=== PATIENT | female | born 1970 | race African-American/Black ===

== ENCOUNTER → 2017-12-18 | Day surgery (SDC) | payer OTHER ==
[2017-12-17 11:06] VITALS: BMI 48.6
[~2017-12-18] MED LIST: Lidocaine 1% PF 5 ML VIAL ONE; PROPOFOL 200 MG/20 ML VIAL ONE
--- NOTE | 2017-12-18 17:11 | OP ---
DATE OF PROCEDURE: 12/18/2017 TITLE OF PROCEDURE: EGD with biopsy. PREOPERATIVE DIAGNOSES: 1. History of recurrent H. pylori infection. 2. Persistent dyspepsia. 3. Currently taking her second round of antibiotic therapy for H. pylori. POSTOPERATIVE DIAGNOSES: 1. Exam to second portion of duodenum. 2. A 2 cm sliding hiatal hernia. 3. Few erosions at the lower esophagus, biopsied at 36 cm for histology. 4. Mild nonspecific patchy erythema of the gastric body and antrum, biopsied for CLOtest. 5. No ulcers identified. 6. Normal duodenum. PROCEDURE IN DETAIL: Written informed consent was obtained. The patient was brought to the endoscop y suite. Total intravenous anesthesia was provided by Paul Sotomayor CRNA. The patient was placed in the left lateral decubitus position. A bite block was inserted into the mouth. When adequate sed ation was achieved, a Pentax video diagnostic gastroscope was introduced into the oral cavity and the esophagus was carefully intubated. The gastroscope was advanced under direct visualization to the s econd portion of the duodenum. Endoscopic findings revealed a small sliding hiatal hernia about 1-2 cm in length. Several small chronic appearing erosions were noted in the lower esophagus just proxim al to the hiatal hernia. Biopsies were obtained at 36 cm for histology. The stomach was entered and carefully examined. This included a retroflexed view of the cardia and fundus. No ulcer or active gastritis was identified. Mild patchy erythema was noted in the body and antrum that appeared nonspe cific. Biopsies were obtained in the body for CLOtest and submitted to microbiology. The duodenum f rom the bulb to the second portion appeared normal. No ulcers were identified. The stomach was deco mpressed as the endoscope was removed from the patient. She was repositioned for the colonoscopy. RECOMMENDATIONS: 1. Await biopsy results. 2. Ask the patient to call me for biopsy results. 3. Continue medication as prescribed by our office for the H. pylori infection. 4. Follow up with GI in 4-6 weeks.
--- NOTE | 2017-12-18 19:22 | OP ---
DATE OF PROCEDURE: 12/18/2017 TITLE OF PROCEDURE: Colonoscopy. PREPROCEDURE DIAGNOSES: 1. Colon screening. 2. Incidental constipation. POSTPROCEDURE DIAGNOSES: 1. Exam to cecum; good bowel preparation. 2. Mild sigmoid diverticulosis. 3. Small internal hemorrhoids. 4. Otherwise normal colonoscopy. No polyp seen. PROCEDURE IN DETAIL: Written informed consent was obtained. Upon completion of the EGD, the patient was positioned for the colonoscopy. Total intravenous anesthesia was provided by ZULEYKA Clement. A digital rectal exam was performed that was unremarkable. A Pentax video colonoscope was inser candy through the anal canal and advanced under direct visualization to the cecum. Position in the cec um was verified by clear identification of the appendiceal orifice and the ileocecal valve. The qual ity of the bowel preparation was good. Each colon segment was examined carefully as the colonoscope was slowly withdrawn from the cecum. Vascular pattern and haustral folds appeared normal. In the si gmoid colon, a few small diverticular orifices were identified. There was no evidence of bleeding. A retroflexed exam in the rectum demonstrated small internal hemorrhoids. No polyps were seen. The colon was decompressed as the colonoscope was removed from the patient. She was transferred to the d ay stay surgery area for post-procedure monitoring. There were no immediate complications. RECOMMENDATIONS: 1. High-fiber, low-fat diet. 2. Continue Linzess 145 mcg daily as needed for constipation. 3. Follow up with [facility] Response Coordinator in 4-6 weeks. 4. Repeat colonoscopy in 10 years for purposes of colon cancer screening.
== END ==
LOC: SDC 10:46
PROVIDERS: ATTEND Internal Medicine Gastroenterology
PROC: 0DJD8ZZ Inspection of Lower Intestinal Tract, Via Natural or Artificial Opening Endoscopic (ICD-10-PCS; principal; 2017-12-18)
PROC: 0DB58ZX Excision of Esophagus, Via Natural or Artificial Opening Endoscopic, Diagnostic (ICD-10-PCS; principal; 2017-12-18)
DX: Z12.11 Encounter for screening for malignant neoplasm of colon (principal); K57.30 Diverticulosis of large intestine without perforation or abscess without bleeding; K64.8 Other hemorrhoids; K22.10 Ulcer of esophagus without bleeding; K44.9 Diaphragmatic hernia without obstruction or gangrene; M19.90 Unspecified osteoarthritis, unspecified site; F41.9 Anxiety disorder, unspecified; F32.9 Major depressive disorder, single episode, unspecified; E66.01 Morbid (severe) obesity due to excess calories; N39.0 Urinary tract infection, site not specified; Z88.0 Allergy status to penicillin; Z79.899 Other long term (current) drug therapy; Z98.890 Other specified postprocedural states; Z88.8 Allergy status to other drugs, medicaments and biological substances; Z68.42 Body mass index [BMI] 45.0-49.9, adult
CPT/HCPCS: 87081; 88305; 88312; 88313; J2001; J2704

== ENCOUNTER 2020-11-12 07:23 | Emergency (ER) | payer OTHER ==
[2020-11-12] MEDS ORDERED: Ondansetron PF 4 MG/2 ML Vial ONE (07:40)
[2020-11-12 08:01] LABS: #Eosinphils 0.1 thou/uL (0.0-0.7); #Lymphocytes 1.5 thou/uL (1.20-3.40); #Monocytes 0.4 thou/uL (0.11-0.59); #Neutrophils 4.2 thou/uL (1.40-6.50); %Basophils 0.3 % (0.0-1.0); %Eosinophils 1.9 % (0.0-10.0); %Lymphocytes 23.8 % (21.0-51.0); %Monocytes 5.8 % (0.0-10.0); %Neutrophils 68.2 % (42.0-75.0); Mean Corpuscular HGB CONC 34.3 g/dL (32.0-36.0); Mean Corpuscular Hemoglobin 31.3 pg (27.0-31.0); Mean Corpuscular Volume 91.1 fL (78.0-98.0); Mean Platelet Volume 7.9 fL (7.4-10.4); Platelet Count 205 thou/uL (130-400); Red Blood Cell (RBC) Count 4.17 mill/uL (4.20-5.40); White Blood Cell (WBC) Count 6.2 thou/uL (4.8-10.8)
[2020-11-12 08:24] LABS: ALT (SGPT) 8 U/L (8-55); AST (SGOT) 14 U/L (5-34); Acetaminophen Less than 6.0 mcg/mL (10.0-30.0); Albumin 4.1 g/dL (3.5-5.0); Alcohol Less than 10 mg/dL (Less than 10); Alkaline Phosphatase 80 U/L (40-110); Anion Gap 13 mmol/L (10-20); BUN (Urea Nitrogen) 11 mg/dL (9.8-20.1); Bilirubin, Total 0.5 mg/dL (0.2-1.2); Calc. Creatinine Clearance 0 mL/min (70-130); Calcium 9.3 mg/dL (7.8-10.44); Carbon Dioxide 25 mmol/L (22-29); Chloride 103 mmol/L (98-107); Globulin 3.5 g/dL (2.4-3.5); Glucose 98 mg/dL (70-105); Magnesium 1.9 mg/dL (1.6-2.6); Potassium 3.6 mmol/L (3.5-5.1); Protein, Total 7.6 g/dL (6.0-8.3); Salicylate Less than 8.0 mg/dL (15.0-30.0); Sodium 137 mmol/L (136-145)
[2020-11-12 09:21] LABS: Bacteria/HPF None Seen HPF (None Seen); Bilirubin Negative (Negative); Blood, Urine Negative (Negative); Clarity Clear (Clear); Glucose, Urine (Dipstick) Normal (Negative); Ketone, Urine Negative (Negative); Leukocyte 250 Leu/uL (Negative); Nitrite Negative (Negative); Protein, Urine (Dipstick) Negative (Neg-Trace); RBC/HPF 0-3 HPF (0-3); Specific Gravity, Urine 1.013 (1.002-1.036); Urobilinogen Normal mg/dL (Less than 2)
[2020-11-12 09:25] LABS: Pregnancy Test - Urine (BHCG) Negative (Negative); Pregu Control Background? CLEAR/WHITE (CLR/WHITE); Pregu Control Bar Appear? YES (CONTROL BAR); Specific Gravity 1.013 (1.002-1.036)
[2020-11-12 09:35] LABS: Amphetamine Not Detected (NotDetected); Barbiturates Screen Not Detected (NotDetected); Benzodiazepine Screen Detected (NotDetected); Cocaine Metabolite Screen Detected (NotDetected); Medtox Control Line Valid? VALID (VALID); Medtox Reader # READER 1; Methadone Not Detected (NotDetected); Methamphetamine Not Detected (NotDetected); Opiate Screen Not Detected (NotDetected); Oxycodone Screen Not Detected (NotDetected); Phencyclidine (PCP) Not Detected (NotDetected); THC/Cannabinoid Screen Not Detected (NotDetected); Tricyclic Screen Not Detected (NotDetected)
== END 2020-11-12 11:48 | disposition home or self-care (01) ==
LOC: ERS 07:23
DX: R11.0 Nausea (principal); T42.4X5A Adverse effect of benzodiazepines, initial encounter; T40.5X5A Adverse effect of cocaine, initial encounter
CPT/HCPCS: 80053; 80306; 80307; 81003; 81015; 81025; 83735; 84443; 84484; 85025; 93005; 96374; J2405

== ENCOUNTER 2021-04-03 17:02 | Emergency (ER) | payer OTHER | END 2021-04-03 17:43 | disposition home or self-care (01) | LOC: ERS 17:02 | DX: S40.011A Contusion of right shoulder, initial encounter (principal); Z87.891 Personal history of nicotine dependence; Y04.2XXA Assault by strike against or bumped into by another person, initial encounter | CPT/HCPCS: 99283 ==

== ENCOUNTER 2021-04-05 15:51 | Emergency (ER) | payer OTHER | END 2021-04-05 18:05 | disposition home or self-care (01) | LOC: ERS 15:51 | DX: S01.01XA Laceration without foreign body of scalp, initial encounter (principal); W22.8XXA Striking against or struck by other objects, initial encounter | CPT/HCPCS: 99283 ==

== ENCOUNTER 2021-12-19 09:49 | Emergency (ER) | payer OTHER | END 2021-12-19 10:59 | disposition home or self-care (01) | LOC: ERS 09:49 | DX: M79.18 Myalgia, other site (principal); V89.2XXA Person injured in unspecified motor-vehicle accident, traffic, initial encounter | CPT/HCPCS: 99283 ==

== ENCOUNTER 2021-12-30 10:05 | Emergency (ER) | payer OTHER | END 2021-12-30 10:35 | disposition home or self-care (01) | LOC: ERS 10:05 | DX: L29.9 Pruritus, unspecified (principal) | CPT/HCPCS: 99282 ==